=== PATIENT | female | born 1985 | race American Indian/Alaskan Native ===

== ENCOUNTER 2021-07-12 22:28 | Emergency (ER) | payer SELFPAY ==
[2021-07-13 00:29] VITALS: BP 150/94
== END 2021-07-13 11:03 | disposition left against medical advice (07) ==
LOC: ED 22:28
DX: T78.40XA Allergy, unspecified, initial encounter (principal); Z53.21 Procedure and treatment not carried out due to patient leaving prior to being seen by health care provider